=== PATIENT | female | born 1960 | race Caucasian/White ===

== ENCOUNTER 2019-08-03 09:11 | Day surgery (SDC) | payer BC ==
[~2019-08-03] VITALS: Ht 167.6 cm; Wt 69.7 kg
[~2019-08-03 09:11] MED LIST: MULTIPLE VITAMI1 CAP PO; VITAMIN C PUR1000 MG PO; [UNRECOGNIZED DRUG - OTHER] PO; [UNRECOGNIZED DRUG - OTHER] PO
[2019-08-03] MEDS ORDERED: PROTONIX 40MG T40 MG PO (09:32)
[2019-08-03 09:46] VITALS: BP 110/71; PULSE 53; TEMP 98.7
[2019-08-03 10:50] VITALS: BP 102/64; PULSE 56; TEMP 97.9
--- NOTE | 2019-08-03 10:50 | NUR ---
Pt arrived back to room via cart with Venkata RNLindsey. Pt ambulated easily to chair after up to bathroom with stand by assist. Received report at chairside from MICHELE Portillo. Reviewed goals of discharge with patient, and she agrees with plan. VSS and WNL and call light within reach. water brought to pt per her request.
[2019-08-03 11:00] VITALS: BP 112/62; PULSE 50
--- NOTE | 2019-08-03 11:00 | NUR ---
Pt sitting comfortably in chair. Successfully drank water without complaints of nausea or pain. Pt awake and oriented, still a little sleepy, but rouses easily.
[2019-08-03 11:15] VITALS: BP 107/65; PULSE 53
--- NOTE | 2019-08-03 11:15 | NUR ---
Pt waking up more and interacting more. Says she feels drowsy but no other complaints. VSS and WNL.
[2019-08-03 11:30] VITALS: BP 110/70; PULSE 53
--- NOTE | 2019-08-03 11:30 | NUR ---
Pt states that she is ready to go home. Reviewed discharge information with patient including signs/symptoms to watch for and when to call the doctor. Pt at this time is awake, alert, and oriented. She has no further questions and she meets criteria for discharge.
== END 2019-08-03 11:35 | disposition home or self-care (01) ==
LOC: SDCO 09:11
DX: D12.0 Benign neoplasm of cecum (principal); K21.9 Gastro-esophageal reflux disease without esophagitis; K44.9 Diaphragmatic hernia without obstruction or gangrene; B96.81 Helicobacter pylori [H. pylori] as the cause of diseases classified elsewhere; K59.00 Constipation, unspecified; R10.13 Epigastric pain; R19.7 Diarrhea, unspecified; Z11.59 Encounter for screening for other viral diseases
CPT/HCPCS: J2250; J3010